=== PATIENT | female | born 1940 ===

== ENCOUNTER 2018-07-14 08:07 | Emergency (ER) | payer MEDICARE, OTHER ==
[2018-07-14 08:08] VITALS: BMI 22.6
--- NOTE | 2018-07-14 09:00 | ED PDOC ---
HPI: Female Pain Time Seen by Provider: 07/14/18 08:21 Chief Complaint (Nursing): Female Genitourinary Chief Complaint (Provider): Female Genitourinary History Per: Patient History/Exam Limitations: no limitations Onset/Duration Of Symptoms: Days Current Symptoms Are (Timing): Still Present Additional Complaint(s): Karol Khalil is a 78 year old female with a past medical history of hypertension, diabetes, and CAD who is presenting to the ED as per referral from urologist for removal of Danielle catheter. Patient states that she had a surgical repair of a right arm fracture, and after hospital stay was not urinating and required Danielle catheter placement. Patient was sent from urologist for removal of catheter with a post void ultrasound. She reports that she has no pain or symptoms of UTI and otherwise reports that she feels well. Patient states however, that this morning she didnt take her home medications as she thought she would be here for a short time. Discussed giving patient home medications. She denies any arm pain or any other acute issues. PMD: none provided Urologist: Dr. Aguilar Rodriguez Past Medical History Reviewed: Historical Data, Nursing Documentation, Vital Signs Vital Signs: Last Vital Signs Temp 98.2 F 07/14/18 08:12 Pulse 76 07/14/18 08:12 Resp 18 07/14/18 08:12 BP 122/57 L 07/14/18 08:12 Pulse Ox 97 07/14/18 08:12 - Medical History PMH: CAD, Diabetes, HTN - Surgical History Surgical History: Coronary Stent - Family History Family History: States: Unknown Family Hx - Social History Current smoker - smoking cessation education provided: No Alcohol: None Drugs: Denies - Home Medications Home Medications: Ambulatory Orders Medication Instructions Recorded Amlodipine Besylate 5 mg PO DAILY 06/16/18 Aspirin [Adult Low Dose Aspirin EC] 81 mg PO DAILY 06/16/18 Atenolol [Tenormin] 20 mg PO DAILY 06/16/18 Atorvastatin Calcium 20 mg PO DAILY 06/16/18 Clopidogrel [Plavix] 75 mg PO DAILY 06/16/18 GlipiZIDE [Glucotrol] 10 mg PO BID 06/16/18 Losartan [Cozaar] 25 mg PO DAILY 06/16/18 Omeprazole 40 mg PO BID 06/16/18 oxyCODONE/Acetaminophen [Percocet 1 tab PO TID PRN 06/16/18 5/325 mg Tab] traMADol [Ultram] 50 mg PO QID 06/16/18 Clopidogrel [Plavix] 75 mg PO DAILY tab 07/03/18 Morphine Sulfate [Morphine Sulfate 15 mg PO Q12 #60 cap.er.pel 07/03/18 ER] levoFLOXacin [Levaquin] 250 mg PO DAILY #5 tab 07/03/18 Docusate Sodium [Colace] 100 mg PO DAILY #30 capsule 07/14/18 Polyethylene Glycol 3350 [Miralax] 17 gm PO DAILY #14 ml 07/14/18 - Allergies Allergies/Adverse Reactions: Allergies Allergy/AdvReac Type Severity Reaction Status Date / Time No Known Allergies Allergy Verified 06/16/18 00:15 Review of Systems ROS Statement: Except As Marked, All Systems Reviewed And Found Negative Genitourinary Female: Negative for: Dysuria Musculoskeletal: Negative for: Arm Pain Physical Exam - Reviewed Nursing Documentation Reviewed: Yes Vital Signs Reviewed: Yes - Physical Exam Appears: Positive for: Well, Non-toxic, No Acute Distress Head Exam: Positive for: ATRAUMATIC, NORMAL INSPECTION, NORMOCEPHALIC Skin: Positive for: Normal Color, Warm, DRY Neck: Positive for: Normal, Painless ROM Cardiovascular/Chest: Positive for: Regular Rate, Rhythm. Negative for: Murmur Respiratory: Positive for: Normal Breath Sounds. Negative for: Respiratory Distress Gastrointestinal/Abdominal: Positive for: Normal Exam, Soft, Other (catheter with urine bag in place, normal looking urine ). Negative for: Tenderness (No suprpubic tenderness) Back: Positive for: Normal Inspection. Negative for: L CVA Tenderness, R CVA Tenderness, Vertebral Tenderness Extremity: Positive for: Normal ROM, Other (right arm in sling and cast, patient ambulatory). Negative for: Deformity, Swelling Neurologic/Psych: Positive for: Alert, Oriented. Negative for: Motor/Sensory Deficits - ECG O2 Sat by Pulse Oximetry: 97 (RA) Pulse Ox Interpretation: Normal Medical Decision Making Medical Decision Making: Time: 8:32 A/P:Void challenge per urologist --Remove Danielle catheter --Ultrasound scheduled for 12:30, 4 hours post void --Home dose glipizide --Urinalysis sent from cath bag --Reassess Patient ----- Scribe Attestation: Documented by, Shy Wasserman acting as a scribe for Ida Jung MD. Provider Scribe Attestation: All medical record entries made by the Scribe were at my direction and personally dictated by me. I have reviewed the chart and agree that the record accurately reflects my personal performance of the history, physical exam, medical decision making, and the department course for this patient. I have also personally directed, reviewed, and agree with the discharge instructions and disposition. Time: 151 -- Patient endorsed to Dr. Ortiz, pending UA. If patient is unable to void freely, patient to be discharged with leg bag danielle catheter. Scribe Attestation: Documented by Nathan Henning, acting as a scribe for Ida Jung MD. Provider Scribe Attestation: All medical record entries made by the Scribe were at my direction and personally dictated by me. I have reviewed the chart and agree that the record accurately reflects my personal performance of the medical decision making and disposition for this patient. I have also personally directed, reviewed, and agree with the discharge instructions and disposition. Disposition - Clinical Impression Clinical Impression: Urinary retention with incomplete bladder emptying, Constipation - Patient ED Disposition Is Patient to be Admitted: Transfer of Care - Disposition Disposition: Transfer of Care Disposition Time: 15:18 Condition: STABLE Additional Instructions: Do not take opioid based medications (Percocet, Tylenol #3, Morphine) unless severe pain. Take Tylenol for moderate pain. Take Colace and Miralax daily to prevent constipation. Follow up with primary medical doctor in two week. Return to the emergency department immediately if you develop difficulty urinating or pain with urination. Prescriptions: Docusate Sodium [Colace] 100 mg PO DAILY #30 capsule Polyethylene Glycol 3350 [Miralax] 17 gm PO DAILY #14 ml Forms: Libretto (Frisian), Libretto (Slovak) Print Language: [place] Patient Signed Over To: Shamika Ortiz Handoff Comments: Pending UA. If patient is unable to void freely, patient to be discharged with a leg bag danielle catheter.
--- NOTE | 2018-07-14 14:06 | US ---
Date of service: 07/14/2018 PROCEDURE: Urinary bladder ultrasound HISTORY: Post catheter removal void test Removal of support apparatus since the prior study: Martin catheter removed approximately 4 hr prior to the study COMPARISON: None TECHNIQUE: Standard protocol for this study/examination. FINDINGS: Urinary bladder assessment: Prevoid volume: 183.4 ml Postvoid residual: 70.9 ml Intrinsic, mural, perivesical abnormalities: None Ureteral jets: Visible bilaterally. IMPRESSION: Postvoid residual 71 mL 4 hr following Martin catheter removal.
[2018-07-14] MEDS ORDERED: POLYETHYLENE GLYCOL 3350 17 GM/Dose PACKET PO STA (14:12)
[2018-07-14 15:12] LABS: SQUAMOUS EPITHIAL 17 /hpf (0-5); URINE BACTERIA OCC (<OCC); URINE BILIRUBIN NEGATIVE (NEGATIVE); URINE BLOOD MODERATE (NEGATIVE); URINE CLARITY TURBID (Clear); URINE COLOR YELLOW (YELLOW); URINE GLUCOSE (UA) >=500 mg/dL (Normal); URINE LEUKOCYTE ESTERASE LARGE Leu/uL (Negative); URINE PROTEIN 30 mg/dL (NEGATIVE); URINE UROBILINOGEN 0.2-1.0 mg/dL (0.2-1.0); WBC CLUMPS FEW /hpf
--- NOTE | 2018-07-14 15:30 | ED PDOC ---
- ECG O2 Sat by Pulse Oximetry: 97 (RA) Pulse Ox Interpretation: Normal Medical Decision Making Medical Decision Making: Time: 1517 -- Patient endorsed to me by Dr. Jung, pending urinalysis. Scribe Attestation: Documented by Nathan Henning, acting as a scribe for Shamika Ortiz MD. Provider Scribe Attestation: All medical record entries made by the Scribe were at my direction and personally dictated by me. I have reviewed the chart and agree that the record accurately reflects my personal performance of the medical decision making, the department course and disposition for this patient. I have also personally directed, reviewed, and agree with the discharge instructions and disposition. Disposition Doctor Will See Patient In The: Office Counseled Patient/Family Regarding: Studies Performed, Diagnosis, Need For Followup - Clinical Impression Clinical Impression: Urinary retention with incomplete bladder emptying, Constipation, Urinary tract infection - POA Present On Arrival: None - Disposition Disposition: Routine/Home Disposition Time: 15:48 Condition: GOOD Additional Instructions: Do not take opioid based medications (Percocet, Tylenol #3, Morphine) unless se vazquez pain. Take Tylenol for moderate pain. Take Colace and Miralax daily to prevent constipation. Follow up with primary medical doctor in two week. Return to the emergency department immediately if you develop difficulty urinating or pain with urination. Prescriptions: Ciprofloxacin HCl [Cipro] 500 mg PO BID #1 tablet Docusate Sodium [Colace] 100 mg PO DAILY #30 capsule Polyethylene Glycol 3350 [Miralax] 17 gm PO DAILY #14 ml Forms: mediaBunker (Syriac), mediaBunker (French) Print Language: SAMI
[2018-07-14 16:23] VITALS: BP 129/59; PULSE 77; RESP 18; TEMP 98.5; O2SAT 100
== END 2018-07-14 16:45 | disposition home or self-care (01) ==
LOC: H.ER 08:07
DX: R33.9 Retention of urine, unspecified (principal); K59.00 Constipation, unspecified; N39.0 Urinary tract infection, site not specified; E11.9 Type 2 diabetes mellitus without complications; Z79.84 Long term (current) use of oral hypoglycemic drugs; Z95.5 Presence of coronary angioplasty implant and graft